=== PATIENT | male | born 1950 | race Caucasian/White ===

== ENCOUNTER 2016-11-22 13:41 | Inpatient (IN) ==
[2016-11-22] MEDS ORDERED: LORazepam 2 MG/ML VIAL IV ONE ×2 (14:19→16:54)
[2016-11-22] MEDS ORDERED: POTASSIUM CHLORIDE 20 MEQ, MAGNESIUM SULFATE 16.24 MEQ, MVI, ADULT NO.4 WITH VIT K 10 M... IV SCH (14:30)
[2016-11-22] MEDS: THIAMINE 100 MG/ML VIAL IM ONE ×2 (14:51→15:22)
[2016-11-22] MEDS ORDERED: POTASSIUM CHLORIDE 20 MEQ, MAGNESIUM SULFATE 16.24 MEQ, THIAMINE 100 MG, MVI, ADULT NO.... IV SCH (15:30)
[2016-11-22 16:08] LABS: Lipase 273 U/L (7-60); Magnesium 1.6 mg/dL (1.6-2.5)
[2016-11-22 16:12] LABS: ALT/SGPT 31 U/l (0-40); Albumin 4.1 gm/dL (3.2-5.2); Albumin/Globulin Ratio 1.9 (1.0-2.3); Alkaline Phosphatase 28 U/L (39-117); Blood Urea Nitrogen 18 mg/dl (8-23)
[2016-11-22 16:26] LABS: Vitamin B12 458.1 pg/ml (243-894)
[2016-11-22 16:34] LABS: Basophils # (Auto) 0 K/mcL (0.0-0.3); Basophils % (Auto) 0 % (0.0-2.0); Eosinophils # (Auto) 0 K/mcL (0.0-0.7); Eosinophils % (Auto) 1.3 % (0.0-7.0); Lymphocytes # (Auto) 0.5 K/mcL (1.5-4.8); Lymphocytes % (Auto) 13.4 % (15.5-49.0); Mean Cell Volume 81.6 fL (80.0-100.0); Mean Corpuscular HGB Conc 31.7 g/dL (31.0-36.0); Mean Corpuscular Hemoglobin 25.8 pg (26.0-34.0); Monocytes # (Auto) 0.6 K/mcL (0.1-0.9); Monocytes % (Auto) 15.3 % (1.0-9.0); Platelet Count 209 K/mcL (140-440); Red Cell Distribution Width 24.1 % (11.5-14.5)
--- NOTE | 2016-11-22 16:46 | Internal Med History&Physical ---
Medical - H&P: HPI Patient information: Note initiated : 11/22/16 at 4:42 pm Service Date, if different from initiated Date: [] Patient: Carl Perez 66 y/o M admitted on for withdrawals. Chief Complaint: [] History of present illness: Mr. Perez is a 66 year old male with a history of chronic alcohol abuse, with many long-term complications including gastritis and esophageal varices with GI bleeding. he says he did quit drinking completely for about one year about 3 years ago, but then gradually resumed it. 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 In September and October several friends , and he has been helping with there is states, and has been a bit overwhelmed. He says he is now drinking up to 3 or 4 bottles of wine per day. Says he has lost his appetite. He is having increased balance and dizziness problems. He decided to quitcold turkey again 2 days ago, and did get a prescription to useperiodically. However today, he says he just suddenly felt extremely frightened and he freaked out and felt like he was falling down, and started screaming. He thinks he has been hallucinating voices. He has been feeling chilled and also has a headache, and says hisears seem to be hearing sounds differently. He has had some vomiting, mainly after coughing and gagging. He's also had some nausea. He's had some mild epigastric discomfort as well. He does note that his stools have been black, but says he has been taking Pepto-Bismol. He presented here this evening, saying he just couldn't handle all of the symptoms he was having at home, and is therefore admitted for monitored alcohol withdrawal symptoms. Otherwise, he denies fever, new vision changes sore throat or cough, chest pain or palpitations, shortness of breath or wheezing. He denies hematemesis or rectal bleeding, or dysuria. Medical History Hypertension (Chronic) Erosive gastritis (Chronic) Dr. Tapia Essential hypertension (Chronic) add losartan to the metoprolol and continue the home monitoring to goal of 140/ 85 Peptic ulcer (Chronic) 12/09/2014 - Dr. Abarca Skin lesion (Chronic) 12/09/2014 - Dr. Abarca. Multiple skin lesions for which he has sought a rubber tire curer in the past Hyperlipidemia (Chronic) 12/09/2014 - Dr. Abarca Hernia, hiatal (Chronic) 12/09/2014 - Dr. Tapia Gastrointestinal bleed (Chronic) 12/09/2014 - Dr. Abarca: Upper GI bleed Gastritis, alcoholic (Chronic) 12/09/2014 - Dr. Abarca Esophageal varices (Chronic) 12/09/2014 - Dr. Abarca CAD (coronary artery disease) (Chronic) 12/09/2014 - Dr. Abarca Bipolar disorder (Chronic) 12/09/2014 - Dr. Abarca Anxiety disorder (Chronic) 12/09/2014 - Dr. Abarca Anemia due to blood loss (Chronic) 12/09/2014 - Dr. Abarca Alcohol dependence, continuous (Chronic) 12/09/2014 - Dr. Abarca Surgical History History of colonoscopy (Chronic 09/14/15) Ned Tapia MD History of intravascular stent placement (Chronic) History of esophagogastroduodenoscopy (Chronic 08/12/15) Dr. Tapia Medication List aspirin 325 mg tablet 325 mg PO QDAY chlorhexidine gluconate 0.12 % mouthwash PO 30 days ezetimibe-simvastatin 10 mg-simvastatin 40 mg tablet 1 tab PO QDAY [Iron] 520 mg tablet 1 tab PO BID lorazepam 1 mg tablet 1 mg PO TID PRN losartan 100 mg tablet 100 mg PO QDAY metoprolol succinate ER 100 mg tablet,extended release 24 hr 100 mg PO QDAY omeprazole 20 mg capsule,delayed release 20 mg PO QDAY tadalafil 5 mg tablet 5 mg PO QDAY Allergies/Adverse Reactions No Known Drug Intolerances family history: mother with lung cancer. Father with prostate cancer. He has one sister who is alive and well. Social History smoking status: Former smoke, he quit in 1991. He has not used drugs since college. He drinks up to 2-3 bottles of wine per day. He is retired. he lives with his .he notes she also drinks alcohol regularly, but she has not had the problems he has had. Medical - H&P: Meds Home Medications Medication Instructions Recorded Confirmed Type Iron 1 tab PO BID 05/29/15 11/20/16 History aspirin 325 mg tablet 325 mg PO QDAY 11/02/15 11/20/16 History chlorhexidine gluconate 0.12 % 30 ml PO DAILY 30 Days 11/02/15 11/22/16 History mouthwash Losartan [Cozaar] 150 mg PO QDAY PRN 11/22/16 11/22/16 History Omeprazole [Prilosec] 20 mg PO HS 11/22/16 11/22/16 History Allergies Allergy/AdvReac Type Severity Reaction Status Date / Time No Known Drug Allergies Allergy Unverified 11/20/16 16:14 Medical - H&P: Exam - Constitutional Vitals: Temp Pulse Resp BP Pulse Ox 98.1 F 54 L 18 166/79 96 11/22/16 13:45 11/22/16 16:20 11/22/16 16:20 11/22/16 16:20 11/22/16 16:20 Exam: On exam, he is an anxious, tearful man, who denies pain.ext line head: Normocephalic, atraumatic. Eyes: PERRLA, EOMI, anicteric. The conjunctiva on the left are mildly injected. Ears: He has bilateral moderate cerumen, obscuring the TMs. Pharynx:Mucosa somewhat dry, teeth are in fair condition. Neck: Is supple, without lymphadenopathy, JVD, thyromegaly. Cardiac exam: Shows normal S1 and S2, without murmurs, rubs, gallops. Lungs are clear to auscultation, without rales, rhonchi, wheezes. Abdomen: Is soft and nontender, without obvious masses. Bowel sounds are normoactive. Extremities: Show no significant edema, cyanosis, clubbing. Neurologic exam: The patient is awake and alert, but anxious and tearful. He is oriented 3. On cerebellar exam he is quite tremulous, but does not appear to show asterixis. Motor exam is otherwise grossly nonfocal. Medical - H&P: Reslt - Labs CBC & Chem 7: 11/22/16 14:30 11/22/16 14:30 Labs: Short CBC 11/22/16 Range/Units 14:30 WBC 3.8 L (4.5-11.0) K/mcL Hgb 11.4 L (13.5-16.5) g/dL Hct 35.9 L (41.0-55.0) % Plt Count 209 (140-440) K/mcL BMP 11/22/16 14:30 Sodium 138 Potassium 3.6 Chloride 101 Carbon Dioxide 20 L BUN 18 Creatinine 0.9 Glucose 105 Calcium 9.0 Liver Function 11/22/16 Range/Units 14:30 Total Bilirubin 1.1 H (0.0-1.0) mg/dL AST 62 H (0-37) U/l ALT 31 (0-40) U/l Alkaline Phosphatase 28 L (39-117) U/L Albumin 4.1 (3.2-5.2) gm/dL alcohol level is less than 0.01 Medical - H&P: A/P (1) Alcohol withdrawal delirium Current visit: Yes Status: Acute (2) Anxiety Current visit: No Status: Acute (3) Alcohol dependence, continuous Problem details: 12/09/2014 - Dr. Abarca Current visit: No Status: Chronic (4) Bipolar disorder Problem details: 12/09/2014 - Dr. Abarca Current visit: No Status: Chronic (5) CAD (coronary artery disease) Problem details: 12/09/2014 - Dr. Abarca Current visit: No Status: Chronic #1. Acute alcohol withdrawal. The patient has apparently been trying to wean himself from alcohol at home, but has overused he lorazepam in the past. He now presents not doing well and there is concern for full-blown DTs. -admitted to telemetry with close monitoring. Alcohol withdrawal protocol using lorazepam and clonidine. #2. CODE STATUS:ull code. The patient believes he has a living will and that his has his POA. #3. DVT prophylaxis: We will use SCDs, given that he takes aspirin at home, and has previous history of GI bleeding and esophageal varices. #4. History of coronary disease. Continue usual cardiac meds. his beta blockers are likely blunting his heart rate response #5. Psychiatric. - history of both bipolar disorder and anxiety. I discussed with him that he's clearly showing some signs of depression, and should consider undergoing treatment with either medications or counseling for at least a few months. #6. GI. -continue proton pump inhibitor. #7. Elevated lipase. He has no significant abdominal pain, so I doubt significant pancreatitis. this visit took proximally 60 minutes, to review the patient's records, review his case with the ER M.D., interview and examine him, and write orders.
--- NOTE | 2016-11-22 16:58 | Emergency Department Note ---
Alcohol HPI - General Chief Complaint: Alcohol Stated Complaint: withdrawals Time Seen by Provider: 11/22/16 14:18 Source: patient, family, EMS Mode of arrival: EMS Limitations: no limitations - History of Present Illness HPI Narrative: 66-year-old male with known history of alcohol abuse came in 2 days ago and received some Ativan to help him with withdrawal. He is now stop for 48 hours without alcohol , drinking plenty of water. However he is having increasing nausea vomiting and tremor hyperventilation. He does want to completely stop drinking and has in the past but is requiring Ativan. 1 mg of Ativan however is no longer holding him more than 3 or 4 hours. He is diaphoretic and panicky. Normal stools and urine- stool sometimes black though from Pepto- Bismol - Related Data Home Medications Medication Instructions Recorded Confirmed Iron 1 tab PO BID 05/29/15 11/20/16 aspirin 325 mg tablet 325 mg PO QDAY 11/02/15 11/20/16 chlorhexidine gluconate 0.12 % 30 ml PO DAILY 30 Days 11/02/15 11/22/16 mouthwash Losartan [Cozaar] 150 mg PO QDAY PRN 11/22/16 11/22/16 Omeprazole [Prilosec] 20 mg PO HS 11/22/16 11/22/16 Previous Rx's Medication Instructions Recorded ezetimibe 10 mg-simvastatin 40 mg 1 tab PO QDAY #30 tab 01/12/16 tablet metoprolol succinate ER 100 mg 100 mg PO QDAY #30 tab 07/26/16 tablet,extended release 24 hr lorazepam 1 mg tablet 1 mg PO TID PRN #90 tab 10/18/16 Allergies Allergy/AdvReac Type Severity Reaction Status Date / Time No Known Drug Allergies Allergy Unverified 11/20/16 16:14 Review of Systems All systems ED: reviewed and negative except as stated. Past Medical History - Past Medical History Attestation: Yes: The following information was validated with the patient. Medical history: Reports: coronary artery disease, GERD, hyperlipidemia, hypertension Surgical history ED: Reports: angioplasty/stent Psychiatric history: Reports: anxiety, bipolar - Social History smoking status: Former smoker Alcohol use: Reports: Heavy Physical Exam Some acute distress from alcohol withdrawal. Diaphoretic hyperventilating and tremulous. Normocephalic atraumatic. Conjunctiva somewhat injected bilaterally. No nasal discharge or congestion. Oropharynx is pink and moist. Posterior pharynx is clear. Neck is supple without lymphadenopathy or thyromegaly. Heart is tachycardic. Lungs are clear to auscultation bilaterally without wheezes rales rhonchi or respiratory distress. Palpating abdomen reproduces nausea. No pedal edema. +2 radial pulse. Alert and oriented he will answer questions appropriately. Very anxious - General Limitations: no limitations Course Vital Signs Temperature 98.1 F 11/22/16 13:45 Pulse Rate 63 11/22/16 13:45 Respiratory Rate 18 11/22/16 13:45 Blood Pressure 187/86 11/22/16 13:45 Pulse Oximetry (%) 98 11/22/16 13:45 Temperature 99.3 F 11/23/16 04:00 Pulse Rate 88 11/22/16 23:00 Respiratory Rate 16 11/23/16 04:00 Blood Pressure 154/85 11/23/16 04:00 Pulse Oximetry (%) 94 11/23/16 07:35 Alcohol - Lab Data Lab results reviewed: Yes I reviewed the patient's lab results. Result diagrams: 11/23/16 04:20 11/23/16 04:20 Lab Results 11/22/16 11/22/16 11/22/16 Range/Units 14:30 14:30 14:30 WBC 3.8 L (4.5-11.0) K/mcL RBC 4.40 L (4.50-5.90) M/mcL Hgb 11.4 L (13.5-16.5) g/dL Hct 35.9 L (41.0-55.0) % POC Hct 36.0 L (41.0-55.0) % MCV 81.6 (80.0-100.0) fL MCH 25.8 L (26.0-34.0) pg MCHC 31.7 (31.0-36.0) g/dL RDW 24.1 H (11.5-14.5) % Plt Count 209 (140-440) K/mcL MPV 8.9 (7.4-10.4) fL Gran % 70.0 (38.0-78.0) % Lymph % (Auto) 13.4 L (15.5-49.0) % Platte % (Auto) 15.3 H (1.0-9.0) % Eos % (Auto) 1.3 (0.0-7.0) % Baso % (Auto) 0 (0.0-2.0) % Gran # 2.7 (1.8-8.0) K/mcL Lymph # 0.5 L (1.5-4.8) K/mcL Platte # 0.6 (0.1-0.9) K/mcL Eos # 0 (0.0-0.7) K/mcL Baso # 0 (0.0-0.3) K/mcL POC Sodium 139 (133-145) mmol/L Sodium (133-145) mmol/L POC Potassium 3.3 (3.3-5.1) mmol/L Potassium (3.3-5.1) mmol/L POC Chloride 104 (96-108) mmol/L Chloride (96-108) mmol/L Carbon Dioxide (22-30) mmol/L POC Total CO2 20 L (22-30) mmol/L Anion Gap (8-16) POC BUN 17 (8-23) mg/dl BUN (8-23) mg/dl Creatinine (0.7-1.2) mg/dl POC Creatinine 0.7 (0.7-1.2) mg/dl GFR Calculation Glucose (70-105) mg/dL POC Glucose 109 H (70-105) mg/dL Hemoglobin A1c (4.0-6.0) % HGB Estim Average Glucose mg/dL Calcium (8.6-10.4) mg/dl POC WB Ioniz Calcium 1.10 L (1.16-1.32) mmol/L Magnesium 1.6 (1.6-2.5) mg/dL Total Bilirubin (0.0-1.0) mg/dL AST (0-37) U/l ALT (0-40) U/l Alkaline Phosphatase (39-117) U/L Total Protein (5.9-8.4) gm/dL Albumin (3.2-5.2) gm/dL Globulin (2.2-3.7) gm/dL Albumin/Globulin Ratio (1.0-2.3) Lipase 273 H (7-60) U/L Vitamin B12 (243-894) pg/ml Ethyl Alcohol < 0.010 (<0.010) gm/dl 11/22/16 11/22/16 11/22/16 Range/Units 14:30 14:30 14:30 WBC (4.5-11.0) K/mcL RBC (4.50-5.90) M/mcL Hgb (13.5-16.5) g/dL Hct (41.0-55.0) % POC Hct (41.0-55.0) % MCV (80.0-100.0) fL MCH (26.0-34.0) pg MCHC (31.0-36.0) g/dL RDW (11.5-14.5) % Plt Count (140-440) K/mcL MPV (7.4-10.4) fL Gran % (38.0-78.0) % Lymph % (Auto) (15.5-49.0) % Platte % (Auto) (1.0-9.0) % Eos % (Auto) (0.0-7.0) % Baso % (Auto) (0.0-2.0) % Gran # (1.8-8.0) K/mcL Lymph # (1.5-4.8) K/mcL Platte # (0.1-0.9) K/mcL Eos # (0.0-0.7) K/mcL Baso # (0.0-0.3) K/mcL POC Sodium (133-145) mmol/L Sodium 138 (133-145) mmol/L POC Potassium (3.3-5.1) mmol/L Potassium 3.6 (3.3-5.1) mmol/L POC Chloride (96-108) mmol/L Chloride 101 (96-108) mmol/L Carbon Dioxide 20 L (22-30) mmol/L POC Total CO2 (22-30) mmol/L Anion Gap 17.0 H (8-16) POC BUN (8-23) mg/dl BUN 18 (8-23) mg/dl Creatinine 0.9 (0.7-1.2) mg/dl POC Creatinine (0.7-1.2) mg/dl GFR Calculation 89 Glucose 105 (70-105) mg/dL POC Glucose (70-105) mg/dL Hemoglobin A1c 5.9 (4.0-6.0) % HGB Estim Average Glucose 123 mg/dL Calcium 9.0 (8.6-10.4) mg/dl POC WB Ioniz Calcium (1.16-1.32) mmol/L Magnesium (1.6-2.5) mg/dL Total Bilirubin 1.1 H (0.0-1.0) mg/dL AST 62 H (0-37) U/l ALT 31 (0-40) U/l Alkaline Phosphatase 28 L (39-117) U/L Total Protein 6.3 (5.9-8.4) gm/dL Albumin 4.1 (3.2-5.2) gm/dL Globulin 2.2 (2.2-3.7) gm/dL Albumin/Globulin Ratio 1.9 (1.0-2.3) Lipase (7-60) U/L Vitamin B12 458.1 (243-894) pg/ml Ethyl Alcohol (<0.010) gm/dl urine shows specific gravity 1.015 otherwise normal Disposition Clinical Impression: Alcohol withdrawal syndrome Summary: Acute alcohol withdrawal in DTs. Started IV fluids with banana bag and given 2 mg Ativan- a total of 4 mg here to control symptoms tolerable levels. Discussed with the patient that he does indeed want to quit drinking and continue detox. Advised him that he should be admitted as he still has at least 1 more day of DTs and will need IV hydration, antiemetics and monitoring. Discussed with Dr. Sy the hospitalist who agreed to admit for alcohol withdrawal Disposition: Xfer As Inpt ([facility] [place]) Condition: Fair
[2016-11-22] MEDS ORDERED: 0.9 % SODIUM CHLORIDE 1,000 ML IV ONE (17:38)
[2016-11-22] MEDS ORDERED: ONDANSETRON 4 MG/2 ML VIAL IV PRN (17:55)
[2016-11-22] MEDS ORDERED: cloNIDine HCL 0.1 MG TABLET PO PRN (17:55)
[2016-11-22] MEDS ORDERED: LORazepam 2 MG/ML VIAL IV PRN (19:15)
[2016-11-22 19:51] LABS: Hemoglobin A1C 5.9 % HGB (4.0-6.0)
[2016-11-22] MEDS ORDERED: LORazepam 2 MG/ML VIAL ONE ×2 (19:53→23:49)
[2016-11-22] MEDS ORDERED: LOSARTAN 50 MG TABLET PO PRN (20:21)
[2016-11-22] MEDS: LORazepam 2 MG/ML VIAL IV PRN ×2 (22:45→23:00)
[2016-11-22] MEDS: 0.9 % SODIUM CHLORIDE 10 ML SYRINGE IV SCH ×2 (23:25)
[2016-11-23] MEDS ORDERED: LORazepam 2 MG/ML VIAL ONE ×2 (02:21→04:19)
[2016-11-23] MEDS: ACETAMINOPHEN 325 MG TABLET PO PRN (03:30)
[2016-11-23] MEDS: 0.9 % SODIUM CHLORIDE 10 ML SYRINGE IV SCH ×5 (04:34→21:03)
[2016-11-23 05:54] LABS: ALT/SGPT 26 U/l (0-40); Albumin 3.8 gm/dL (3.2-5.2); Albumin/Globulin Ratio 1.5 (1.0-2.3); Alkaline Phosphatase 25 U/L (39-117); Bilirubin,Direct 0.3 mg/dL (0.0-0.3); Blood Urea Nitrogen 13 mg/dl (8-23); Gamma Glutamyl Transpeptidase 503 U/L (8-61); Magnesium 2.2 mg/dL (1.6-2.5); Phosphorous 3.6 mg/dL (2.7-4.5); Uric Acid 4.3 mg/dL (2.5-8.0)
[2016-11-23] MEDS: PANTOPRAZOLE 40 MG TABLET PO SCH (07:31)
[2016-11-23] MEDS ORDERED: POTASSIUM CHLORIDE 40 MEQ in DEXTROSE 5% IN WATER 500 ML IV ONE (07:36)
[2016-11-23 08:21] LABS: Basophils # (Auto) 0 K/mcL (0.0-0.3); Basophils % (Auto) 0 % (0.0-2.0); Eosinophils # (Auto) 0 K/mcL (0.0-0.7); Eosinophils % (Auto) 0.7 % (0.0-7.0); Granulocytes % (Auto) 61.1 % (38.0-78.0); Lymphocytes # (Auto) 0.8 K/mcL (1.5-4.8); Lymphocytes % (Auto) 24.8 % (15.5-49.0); Mean Cell Volume 81.3 fL (80.0-100.0); Mean Corpuscular HGB Conc 32.5 g/dL (31.0-36.0); Mean Corpuscular Hemoglobin 26.4 pg (26.0-34.0); Monocytes # (Auto) 0.5 K/mcL (0.1-0.9); Monocytes % (Auto) 13.4 % (1.0-9.0); Platelet Count 195 K/mcL (140-440); Red Cell Distribution Width 23.4 % (11.5-14.5)
[2016-11-23] MEDS ORDERED: METOPROLOL SUCCINATE 50 MG TAB.XL.24H PO SCH (09:00)
[2016-11-23] MEDS: THIAMINE 100 MG TABLET PO SCH (10:18)
[2016-11-23] MEDS: MULTIVIT,THER IRON,CA,FA & MIN 1 TABLET PO SCH (10:18)
[2016-11-23] MEDS: FOLIC ACID 1 MG TABLET PO SCH (10:18)
[2016-11-23] MEDS: CHLORHEXIDINE GLUCONATE 1 ML ORAL.SOL SSP SCH (10:21)
[2016-11-23] MEDS: LORazepam 2 MG/ML VIAL IV PRN ×3 (10:22→21:04)
--- NOTE | 2016-11-23 12:05 | Internal Med Progress Note ---
Medical - PN: Subj Patient information: Note initiated : 11/23/16 at 12:05 pm Service Date, if different from initiated Date: [] Patient: Carl Perez 66 y/o M admitted on 11/22/16 for withdrawals. Chief Complaint: [] Interval history: November 22, 2016:History of present illness: Mr. Perez is a 66 year old male with a history of chronic alcohol abuse, with many long-term complications including gastritis and esophageal varices with GI bleeding. he says he did quit drinking completely for about one year about 3 years ago, but then gradually resumed it. 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 In September and October several friends , and he has been helping with there is states, and has been a bit overwhelmed. He says he is now drinking up to 3 or 4 bottles of wine per day. Says he has lost his appetite. He is having increased balance and dizziness problems. He decided to quitcold turkey again 2 days ago, and did get a prescription to useperiodically. However today, he says he just suddenly felt extremely frightened and he freaked out and felt like he was falling down, and started screaming. He thinks he has been hallucinating voices. He has been feeling chilled and also has a headache, and says hisears seem to be hearing sounds differently. He has had some vomiting, mainly after coughing and gagging. He's also had some nausea. He's had some mild epigastric discomfort as well. He does note that his stools have been black, but says he has been taking Pepto-Bismol. He presented here this evening, saying he just couldn't handle all of the symptoms he was having at home, and is therefore admitted for monitored alcohol withdrawal symptoms. Otherwise, he denies fever, new vision changes sore throat or cough, chest pain or palpitations, shortness of breath or wheezing. He denies hematemesis or rectal bleeding, or dysuria. November 23, 2016: the patient has had widely varying CIWA scores overnight. He continues to have intermittent agitation, confusion, hallucinations but at other times is calm and cooperative and fairly alert. He does not seem to recognize me when I first entered the room today, and then asked me if he met me several days ago. he did manage to climb out of bed at least once last night. otherwise, he says he has some mild low back pain, which is chronic. He denies fever or chills, chest pain or palpitations, shortness of breath or cough, abdominal pain, nausea or vomiting, dysuria. - Constitutional Vitals: Vital Signs Temp Pulse Resp BP Pulse Ox 98.4 F 59 L 16 172/95 97 11/23/16 08:00 11/23/16 08:00 11/23/16 08:00 11/23/16 08:00 11/23/16 08:00 Period Temp Pulse Resp BP Sys/Jacobs Pulse Ox Last 24 Hr 98.4 F-100.5 F 53-88 16-24 135-187/74-98 92-100 Intake and Output 11/22/16 11/23/16 11/23/16 21:59 05:59 13:59 Intake Total 600 / 2425 390 / 390 Output Total 250 / 250 750 / 750 250 / 250 Balance 350 / 2175 -360 / -360 -250 / -250 Weight 191 lb 12.8 oz Intake & Output: Intake & Output 11/22/16 11/23/16 11/23/16 21:59 05:59 13:59 Intake Total 600 / 2425 390 / 390 Output Total 250 / 250 750 / 750 250 / 250 Balance 350 / 2175 -360 / -360 -250 / -250 Weight 191 lb 12.8 oz Intake: Oral 600 / 600 390 / 390 Output: Void Amount 250 / 250 750 / 750 250 / 250 Other: Meal snake 100% Breakfast Percent of Meal Consumed 100% Exam: On exam,he is fairly calm morning, but forgetful. neck is supple without obvious lymphadenopathy or JVD. Cardiac exam shows regular rate and rhythm. Lungs are clear to auscultation. Abdomen is soft and nontender.Extremities show no edema. Neurologic exam:The patient is calm and alert, but forgetful. He is much less tremulous today than yesterday. Otherwise exam is grossly nonfocal. Medical - PN: Obj Da - Labs CBC & Chem 7: 11/23/16 04:20 11/23/16 04:20 Labs: Abnormal Lab Results 11/23/16 11/23/16 04:20 04:20 WBC 3.4 L RBC 4.10 L Hgb 10.8 L Hct 33.3 L RDW 23.4 H Lyman % (Auto) 13.4 H Lymph # 0.8 L Potassium 3.2 L GGT 503 H AST 47 H Alkaline Phosphatase 25 L MRSA nasal screen is negative. Meds: Medications Acetaminophen (Tylenol) 650 mg PO Q6HP PRN PRN Reason: PAIN/FEVER > 101 Last Admin: 11/23/16 03:30 Dose: 650 mg Chlorhexidine Gluconate (Peridex) 30 ml SSP DAILY [facility] Last Admin: 11/23/16 10:21 Dose: 30 ml Clonidine HCl (Catapres) 0.1 mg PO Q4HP PRN PRN Reason: Alcohol Withdrawal Last Admin: 11/23/16 10:17 Dose: 0.1 mg Docusate Sodium (Colace) 100 mg PO BID PRN PRN Reason: Constipation Ezetimibe (Zetia) 10 mg PO HS [facility] Folic Acid (Folic Acid) 1 mg PO DAILY [facility] Last Admin: 11/23/16 10:18 Dose: 1 mg Iron Carb/Multivit/[place]/Folic Acid (Multivitamin W/Minerals) 1 tab PO DAILY [facility] Last Admin: 11/23/16 10:18 Dose: 1 tab Lorazepam (Ativan) 0 mg IV Q4HP PRN; Protocol PRN Reason: Alcohol Withdrawal Last Admin: 11/23/16 10:22 Dose: 2 mg Losartan Potassium (Cozaar) 100 mg PO QDAY [facility] Metoprolol Succinate (Toprol Xl) 50 mg PO BID [facility] Ondansetron HCl (Zofran) 4 mg IV Q4HP PRN PRN Reason: Nausea And Vomiting Last Admin: 11/22/16 22:55 Dose: 4 mg Pantoprazole Sodium (Protonix) 40 mg PO QAMAC [facility] Last Admin: 11/23/16 07:31 Dose: 40 mg Simvastatin (Zocor) 40 mg PO [facility] Sodium Chloride (Saline Flush) 10 ml IV Q8 [facility] Last Admin: 11/23/16 04:34 Dose: 10 ml Sodium Chloride (Saline Flush) 10 ml IV Q8 [facility] Last Admin: 11/23/16 04:34 Dose: Not Given Thiamine HCl (Vitamin B1) 100 mg PO QDAY [facility] Last Admin: 11/23/16 10:18 Dose: 100 mg Medical - PN: A/P - Time Spent With Patient Total time spent is greater than 50% in coordination of care (as documented) at patient's floor/unit and/or counseling patient: (1) Alcohol withdrawal delirium Status: Acute Current Visit: Yes (2) Anxiety Status: Acute Current Visit: No (3) Alcohol dependence, continuous Problem details: 12/09/2014 - Dr. Abarca Status: Chronic Current Visit: No (4) Bipolar disorder Problem details: 12/09/2014 - Dr. Abarca Status: Chronic Current Visit: No (5) CAD (coronary artery disease) Problem details: 12/09/2014 - Dr. Abarca Status: Chronic Current Visit: No - Narrative A/P Narrative: #1. Acute alcohol withdrawal. The patient has apparently been trying to wean himself from alcohol at home, but has overused he lorazepam in the past. He now presents not doing well and there is concern for full-blown DTs. -admitted to telemetry with close monitoring. Alcohol withdrawal protocol using lorazepam and clonidine. the patient continues to have bouts of confusion, agitation, elevated blood pressure. He will need at least another dayof close monitoring and treatment with lorazepam and clonidine. -continue multivitamin, thiamine, folate. #2. CODE STATUS:Full code. The patient believes he has a living will and that his has his POA. #3. DVT prophylaxis: We will use SCDs, given that he takes aspirin at home, and has previous history of GI bleeding and esophageal varices. #4. History of coronary disease. Continue usual cardiac meds. -heart rates have been slow this morning, possibly due to clonidine. I will split his dose of metoprolol to twice a day in case he becomes more tachycardic. Elevated blood pressures are likely due to withdrawal, and are being addressed with his usual meds plus clonidine. #5. Psychiatric. - history of both bipolar disorder and anxiety. I discussed with him that he's clearly showing some signs of depression, and should consider undergoing treatment with either medications or counseling for at least a few months. #6. GI. -continue proton pump inhibitor. #7. Elevated lipase. He has no significant abdominal pain, so I doubt significant pancreatitis. #8. Hypokalemia. Replaced IV. So far today, this visit has taken [id number] minutes, to review patient's test results, interview and examine him, reviewing his case with nursing staff, and write orders. Medical - PN: Qual - Stroke Symptom Onset Unknown: No - VTE Deep Vein Thrombosis/Pulmonary Embolism Present on Admission: No
[2016-11-23] MEDS: METOPROLOL SUCCINATE 50 MG TAB.XL.24H PO SCH (21:02)
[2016-11-23] MEDS: SIMVASTATIN 40 MG TABLET PO SCH (21:03)
[2016-11-23] MEDS: EZETIMIBE 10 MG TABLET PO SCH (21:03)
[2016-11-24] MEDS: 0.9 % SODIUM CHLORIDE 10 ML SYRINGE IV SCH ×7 (00:13→21:18)
[2016-11-24] MEDS: LORazepam 2 MG/ML VIAL IV PRN ×11 (00:28→21:15)
[2016-11-24] MEDS: ACETAMINOPHEN 325 MG TABLET PO PRN ×2 (03:32→07:37)
[2016-11-24 06:27] LABS: ALT/SGPT 21 U/l (0-40); Albumin 3.5 gm/dL (3.2-5.2); Albumin/Globulin Ratio 1.5 (1.0-2.3); Alkaline Phosphatase 23 U/L (39-117); Bilirubin,Direct 0.2 mg/dL (0.0-0.3); Blood Urea Nitrogen 13 mg/dl (8-23); Gamma Glutamyl Transpeptidase 456 U/L (8-61); Phosphorous 4.8 mg/dL (2.7-4.5); Uric Acid 4.8 mg/dL (2.5-8.0)
[2016-11-24] MEDS: METOPROLOL SUCCINATE 50 MG TAB.XL.24H PO SCH ×3 (07:23→21:14)
[2016-11-24] MEDS: CHLORHEXIDINE GLUCONATE 1 ML ORAL.SOL SSP SCH (07:36)
[2016-11-24] MEDS: PANTOPRAZOLE 40 MG TABLET PO SCH (07:37)
[2016-11-24] MEDS: DOCUSATE SODIUM 100 MG CAPSULE PO PRN (07:37)
[2016-11-24] MEDS: LOSARTAN 50 MG TABLET PO SCH (07:37)
[2016-11-24] MEDS: FOLIC ACID 1 MG TABLET PO SCH (07:37)
[2016-11-24] MEDS: MULTIVIT,THER IRON,CA,FA & MIN 1 TABLET PO SCH (07:37)
[2016-11-24] MEDS: THIAMINE 100 MG TABLET PO SCH (09:08)
--- NOTE | 2016-11-24 13:17 | Internal Med Progress Note ---
Medical - PN: Subj Patient information: Note initiated : 11/24/16 at 1:17 pm Service Date, if different from initiated Date: [] Patient: Carl Perez 66 y/o M admitted on 11/22/16 for withdrawals. Chief Complaint: [] Interval history: November 22, 2016:History of present illness: Mr. Perez is a 66 year old male with a history of chronic alcohol abuse, with many long-term complications including gastritis and esophageal varices with GI bleeding. he says he did quit drinking completely for about one year about 3 years ago, but then gradually resumed it. 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 In September and October several friends , and he has been helping with there is states, and has been a bit overwhelmed. He says he is now drinking up to 3 or 4 bottles of wine per day. Says he has lost his appetite. He is having increased balance and dizziness problems. He decided to quitcold turkey again 2 days ago, and did get a prescription to useperiodically. However today, he says he just suddenly felt extremely frightened and he freaked out and felt like he was falling down, and started screaming. He thinks he has been hallucinating voices. He has been feeling chilled and also has a headache, and says hisears seem to be hearing sounds differently. He has had some vomiting, mainly after coughing and gagging. He's also had some nausea. He's had some mild epigastric discomfort as well. He does note that his stools have been black, but says he has been taking Pepto-Bismol. He presented here this evening, saying he just couldn't handle all of the symptoms he was having at home, and is therefore admitted for monitored alcohol withdrawal symptoms. Otherwise, he denies fever, new vision changes sore throat or cough, chest pain or palpitations, shortness of breath or wheezing. He denies hematemesis or rectal bleeding, or dysuria. November 23, 2016: the patient has had widely varying CIWA scores overnight. He continues to have intermittent agitation, confusion, hallucinations but at other times is calm and cooperative and fairly alert. He does not seem to recognize me when I first entered the room today, and then asked me if he met me several days ago. he did manage to climb out of bed at least once last night. otherwise, he says he has some mild low back pain, which is chronic. He denies fever or chills, chest pain or palpitations, shortness of breath or cough, abdominal pain, nausea or vomiting, dysuria. November 24, 2016: Today, the patient seems to be having less hallucinations, but he still has episodes of being very anxious and tremulous. The nurses say heis asking for the lorazepam every 2-4 hours, whether or not he needs criteria. He seems a bit frightened about the prospect of going home anytime soon. He still seems to be a little on the fence about going to inpatient rehabilitation for his alcoholism. he admits that he feels quite depressed andhe needs to seek treatment for that. he otherwise denies fever or chills, chest pain or palpitations, shortness of breath, nausea vomiting or abdominal pain, dysuria, current hallucinations. - Constitutional Vitals: Vital Signs Temp Pulse Resp BP Pulse Ox 98.0 F 54 L 19 156/75 95 11/24/16 12:00 11/24/16 12:00 11/24/16 12:00 11/24/16 12:00 11/24/16 12:00 Period Temp Pulse Resp BP Sys/Jacobs Pulse Ox Last 24 Hr 97.3 F-98.9 F 46-57 12-19 136-178/75-109 76-100 Intake and Output 11/23/16 11/24/16 11/24/16 21:59 05:59 13:59 Intake Total 200 / 200 760 / 760 Output Total 726 / 726 500 / 500 500 / 500 Balance -526 / -526 -500 / -500 260 / 260 Weight 185 lb 4.8 oz Intake & Output: Intake & Output 11/23/16 11/24/16 11/24/16 21:59 05:59 13:59 Intake Total 200 / 200 760 / 760 Output Total 726 / 726 500 / 500 500 / 500 Balance -526 / -526 -500 / -500 260 / 260 Weight 185 lb 4.8 oz Intake: IV 520 / 520 Oral 200 / 200 240 / 240 Output: Void Amount 725 / 725 500 / 500 500 / 500 # of times incontinent of 1 / 1 urine Other: Meal snack Breakfast Percent of Meal Consumed 100% 100% Feeding Ability Assist with Tray Set Up Independent Exam: On exam,he is fairly calm but still speaks slowly and seems to lose track of his thoughts. neck is supple without obvious lymphadenopathy or JVD. Cardiac exam shows regular rate and rhythm. Lungs are clear to auscultation. Abdomen is soft and nontender.Extremities show no edema. Neurologic exam:The patient is calm and alert, but forgetful. he has a very fine tremor, which appears improved over yesterday. Otherwise exam is nonfocal. Medical - PN: Obj Da - Labs CBC & Chem 7: 11/23/16 04:20 11/24/16 04:40 Labs: Abnormal Lab Results 11/24/16 11/23/16 11/23/16 04:40 04:20 04:20 WBC 3.4 L RBC 4.10 L Hgb 10.8 L Hct 33.3 L RDW 23.4 H [place] % (Auto) 13.4 H Lymph # 0.8 L Potassium 3.2 L Phosphorus 4.8 H GGT 456 H 503 H AST 39 H 47 H Alkaline Phosphatase 23 L 25 L MRSA nasal screen is negative. Meds: Medications Acetaminophen (Tylenol) 650 mg PO Q6HP PRN PRN Reason: PAIN/FEVER > 101 Last Admin: 11/24/16 07:37 Dose: 650 mg Chlorhexidine Gluconate (Peridex) 30 ml SSP DAILY [facility] Last Admin: 11/24/16 07:36 Dose: 30 ml Clonidine HCl (Catapres) 0.1 mg PO Q4HP PRN PRN Reason: Alcohol Withdrawal Last Admin: 11/23/16 10:17 Dose: 0.1 mg Docusate Sodium (Colace) 100 mg PO BID PRN PRN Reason: Constipation Last Admin: 11/24/16 07:37 Dose: 100 mg Ezetimibe (Zetia) 10 mg PO HS [facility] Last Admin: 11/23/16 21:03 Dose: 10 mg Folic Acid (Folic Acid) 1 mg PO DAILY [facility] Last Admin: 11/24/16 07:37 Dose: 1 mg Iron Carb/Multivit/Noxapater/Folic Acid (Multivitamin W/Minerals) 1 tab PO DAILY [facility] Last Admin: 11/24/16 07:37 Dose: 1 tab Lorazepam (Ativan) 0 mg IV Q4HP PRN; Protocol PRN Reason: Alcohol Withdrawal Last Admin: 11/24/16 12:22 Dose: 2 mg Losartan Potassium (Cozaar) 100 mg PO QDAY [facility] Last Admin: 11/24/16 07:37 Dose: 100 mg Metoprolol Succinate (Toprol Xl) 50 mg PO BID [facility] Last Admin: 11/24/16 10:07 Dose: 50 mg Ondansetron HCl (Zofran) 4 mg IV Q4HP PRN PRN Reason: Nausea And Vomiting Last Admin: 11/22/16 22:55 Dose: 4 mg Pantoprazole Sodium (Protonix) 40 mg PO QAMAC [facility] Last Admin: 11/24/16 07:37 Dose: 40 mg Simvastatin (Zocor) 40 mg PO HS [facility] Last Admin: 11/23/16 21:03 Dose: 40 mg Sodium Chloride (Saline Flush) 10 ml IV Q8 [facility] Last Admin: 11/24/16 12:22 Dose: 10 ml Sodium Chloride (Saline Flush) 10 ml IV Q8 [facility] Last Admin: 11/24/16 12:22 Dose: 10 ml Thiamine HCl (Vitamin B1) 100 mg PO QDAY [facility] Last Admin: 11/24/16 09:08 Dose: 100 mg Medical - PN: A/P - Time Spent With Patient Total time spent is greater than 50% in coordination of care (as documented) at patient's floor/unit and/or counseling patient: (1) Alcohol withdrawal delirium Status: Acute Current Visit: Yes (2) Anxiety Status: Acute Current Visit: No (3) Alcohol dependence, continuous Problem details: 12/09/2014 - Dr. Abarca Status: Chronic Current Visit: No (4) Bipolar disorder Problem details: 12/09/2014 - Dr. Abarca Status: Chronic Current Visit: No (5) CAD (coronary artery disease) Problem details: 12/09/2014 - Dr. Abarca Status: Chronic Current Visit: No - Narrative A/P Narrative: #1. Acute alcohol withdrawal. The patient has apparently been trying to wean himself from alcohol at home, but has overused he lorazepam in the past. He now presents not doing well and there is concern for full-blown DTs. -admitted to telemetry with close monitoring. Alcohol withdrawal protocol using lorazepam and clonidine. -he patient's episodes of confusion and agitation and hallucinations are improving. Blood pressure is a little bit better controlled today. It appears he will need at least 1 more day of close monitoring and treatment for withdrawal symptoms. -he and his did meet with social work today, and her exploring alcohol rehabilitation options, although he does not seem to want to do inpatient. -continue multivitamin, thiamine, folate. #2. CODE STATUS:Full code. The patient believes he has a living will and that his has his POA. #3. DVT prophylaxis: We will use SCDs, given that he takes aspirin at home, and has previous history of GI bleeding and esophageal varices. #4. History of coronary disease. Continue usual cardiac meds. -he continues to have bradycardia, with heart rates in the 40s and 50s We are trying to continue with his metoprolol and losartan, regarding his hypertension. -Elevated blood pressures are likely due to withdrawal, and are being addressed with his usual meds plus clonidine. #5. Psychiatric. - history of both bipolar disorder and anxiety. I discussed with him that he's clearly showing some signs of depression, and should consider undergoing treatment with either medications or counseling for at least a few months. #6. GI. -continue proton pump inhibitor. #7. Elevated lipase. He has no significant abdominal pain, so I doubt significant pancreatitis. #8. Hypokalemia. Replaced IV. So far today, this visit has taken approximately 30 minutes, to review patient' s test results, interview and examine him, reviewing his case and plan of care, both with his and with nursing staff, and write orders. Medical - PN: Qual - Stroke Symptom Onset Unknown: No - VTE Deep Vein Thrombosis/Pulmonary Embolism Present on Admission: No
[2016-11-24] MEDS: SIMVASTATIN 40 MG TABLET PO SCH (21:14)
[2016-11-24] MEDS: EZETIMIBE 10 MG TABLET PO SCH (21:14)
[2016-11-25] MEDS: LORazepam 2 MG/ML VIAL IV PRN ×2 (00:10→05:55)
[2016-11-25] MEDS ORDERED: amLODIPine 5 MG TABLET PO ONE (04:31)
[2016-11-25] MEDS ORDERED: amLODIPine 5 MG TABLET ONE (04:44)
[2016-11-25] MEDS: 0.9 % SODIUM CHLORIDE 10 ML SYRINGE IV SCH ×4 (05:56→12:10)
[2016-11-25] MEDS: CHLORHEXIDINE GLUCONATE 1 ML ORAL.SOL SSP SCH (08:35)
[2016-11-25] MEDS: LOSARTAN 50 MG TABLET PO SCH (08:54)
[2016-11-25] MEDS: MULTIVIT,THER IRON,CA,FA & MIN 1 TABLET PO SCH (08:55)
[2016-11-25] MEDS: ACETAMINOPHEN 325 MG TABLET PO PRN (08:55)
[2016-11-25] MEDS: DOCUSATE SODIUM 100 MG CAPSULE PO PRN (08:55)
[2016-11-25] MEDS ORDERED: HYDROCHLOROTHIAZIDE 25 MG TABLET PO SCH (09:00)
[2016-11-25] MEDS: PANTOPRAZOLE 40 MG TABLET PO SCH (09:05)
[2016-11-25] MEDS: FOLIC ACID 1 MG TABLET PO SCH (09:05)
[2016-11-25] MEDS: METOPROLOL SUCCINATE 50 MG TAB.XL.24H PO SCH (09:06)
[2016-11-25] MEDS: THIAMINE 100 MG TABLET PO SCH (09:09)
--- NOTE | 2016-11-25 11:56 | Discharge Summary ---
Medical - DS: Prov Patient information: Note initiated : 11/25/16 at 11:50 am Service Date, if different from initiated Date: [] Patient: Carl Perez 66 y/o M admitted on 11/22/16 for withdrawals. Chief Complaint: [] Date of admission: 11/22/16 17:43 Discharge date: 11/25/16 Primary care physician: [dr. Sam Jasmine, [id number]] Admitting clinician: Neha Taylor Attending physician on discharge: Neha Taylor Medical - DS: Meds - Discharge Medications Prescriptions: Hydrochlorothiazide [Oretic] 25 mg PO DAILY #30 tablet LORazepam [Ativan] 1 mg PO Q6HP PRN #40 tablet PRN Reason: Agitation amLODIPine [Norvasc] 2.5 mg PO Q6H PRN #30 tablet PRN Reason: Blood Pressure - High Active and Home Medications: Home Medications Losartan [Cozaar] 150 mg PO QDAY PRN 11/22/16 [History Confirmed 11/22/16 Last Taken 11/13/16 09:00] Omeprazole [Prilosec] 20 mg PO HS 11/22/16 [History Confirmed 11/22/16 Last Taken 11/19/16] Active Medications Acetaminophen (Tylenol) 650 mg PO Q6HP PRN PRN Reason: PAIN/FEVER > 101 Last Admin: 11/25/16 08:55 Dose: 650 mg Chlorhexidine Gluconate (Peridex) 30 ml SSP DAILY [facility] Last Admin: 11/25/16 08:35 Dose: 30 ml Clonidine HCl (Catapres) 0.1 mg PO Q4HP PRN PRN Reason: Alcohol Withdrawal Last Admin: 11/23/16 10:17 Dose: 0.1 mg Docusate Sodium (Colace) 100 mg PO BID PRN PRN Reason: Constipation Last Admin: 11/25/16 08:55 Dose: 100 mg Ezetimibe (Zetia) 10 mg PO HS [facility] Last Admin: 11/24/16 21:14 Dose: 10 mg Folic Acid (Folic Acid) 1 mg PO DAILY [facility] Last Admin: 11/25/16 09:05 Dose: 1 mg Hydrochlorothiazide (Oretic) 25 mg PO DAILY [facility] Last Admin: 11/25/16 09:06 Dose: 25 mg Iron Carb/Multivit/Barren/Folic Acid (Multivitamin W/Minerals) 1 tab PO DAILY [facility] Last Admin: 11/25/16 08:55 Dose: 1 tab Lorazepam (Ativan) 0 mg IV Q4HP PRN; Protocol PRN Reason: Alcohol Withdrawal Last Admin: 11/25/16 05:55 Dose: 1 mg Lorazepam (Ativan) 1 mg PO ONCE ONE Stop: 11/25/16 12:01 Losartan Potassium (Cozaar) 100 mg PO QDAY [facility] Last Admin: 11/25/16 08:54 Dose: 100 mg Metoprolol Succinate (Toprol Xl) 50 mg PO BID [facility] Last Admin: 11/25/16 09:06 Dose: 50 mg Ondansetron HCl (Zofran) 4 mg IV Q4HP PRN PRN Reason: Nausea And Vomiting Last Admin: 11/22/16 22:55 Dose: 4 mg Pantoprazole Sodium (Protonix) 40 mg PO QAMAC [facility] Last Admin: 11/25/16 09:05 Dose: 40 mg Simvastatin (Zocor) 40 mg PO HS [facility] Last Admin: 11/24/16 21:14 Dose: 40 mg Sodium Chloride (Saline Flush) 10 ml IV Q8 [facility] Last Admin: 11/25/16 05:56 Dose: 10 ml Sodium Chloride (Saline Flush) 10 ml IV Q8 [facility] Last Admin: 11/25/16 06:00 Dose: 10 ml Thiamine HCl (Vitamin B1) 100 mg PO QDAY [facility] Last Admin: 11/25/16 09:09 Dose: 100 mg Medical - DS: Hosp Hospital course: Mr. Perez is a 66 year old male November 22, 2016:History of present illness: Mr. Perez is a 66 year old male with a history of chronic alcohol abuse, with many long-term complications including gastritis and esophageal varices with GI bleeding. he says he did quit drinking completely for about one year about 3 years ago, but then gradually resumed it. 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 In September and October several friends , and he has been helping with there is states, and has been a bit overwhelmed. He says he is now drinking up to 3 or 4 bottles of wine per day. Says he has lost his appetite. He is having increased balance and dizziness problems. He decided to quitcold turkey again 2 days ago, and did get a prescription to useperiodically. However today, he says he just suddenly felt extremely frightened and he freaked out and felt like he was falling down, and started screaming. He thinks he has been hallucinating voices. He has been feeling chilled and also has a headache, and says hisears seem to be hearing sounds differently. He has had some vomiting, mainly after coughing and gagging. He's also had some nausea. He's had some mild epigastric discomfort as well. He does note that his stools have been black, but says he has been taking Pepto-Bismol. He presented here this evening, saying he just couldn't handle all of the symptoms he was having at home, and is therefore admitted for monitored alcohol withdrawal symptoms. Otherwise, he denies fever, new vision changes sore throat or cough, chest pain or palpitations, shortness of breath or wheezing. He denies hematemesis or rectal bleeding, or dysuria. November 23, 2016: the patient has had widely varying CIWA scores overnight. He continues to have intermittent agitation, confusion, hallucinations but at other times is calm and cooperative and fairly alert. He does not seem to recognize me when I first entered the room today, and then asked me if he met me several days ago. he did manage to climb out of bed at least once last night. otherwise, he says he has some mild low back pain, which is chronic. He denies fever or chills, chest pain or palpitations, shortness of breath or cough, abdominal pain, nausea or vomiting, dysuria. November 24, 2016: Today, the patient seems to be having less hallucinations, but he still has episodes of being very anxious and tremulous. The nurses say he is asking for the lorazepam every 2-4 hours, whether or not he needs criteria. He seems a bit frightened about the prospect of going home anytime soon. He still seems to be a little on the fence about going to inpatient rehabilitation for his alcoholism. he admits that he feels quite depressed andhe needs to seek treatment for that. he otherwise denies fever or chills, chest pain or palpitations, shortness of breath, nausea vomiting or abdominal pain, dysuria, current hallucinations. November 25, 2016: -the patient continued to spike high blood pressures during the night, and did receive a when necessary dose of amlodipine, in addition to his usual metoprolol ,losartan. This morning he is awake and alert, he still tends to be fairly anxious. His nurses say he still is asking for Ativan wore off and then his CIWA score would indicate that he needs it. Reviewing his clinical course over the last couple of months, I suspect he is now dependent on benzodiazepines as well. -he seems to be through his alcohol withdrawal process, and is encouraged not to go back to drinking once he gets home. He and his were agreeable to signing up for some sort of outpatient rehabilitation program, but refused inpatient rehabilitation.- -He otherwise denies fever or chills, chest pain or shortness of breath, abdominal pain, nausea or vomiting or diarrhea, or dysuria. assessment and plan: #1. Acute alcohol withdrawal. The patient has apparently been trying to wean himself from alcohol at home, but has overused the lorazepam in the past. he is now through the worst of his alcohol withdrawal, and is much less tremulous. He appears clinically stable for discharge. His hallucinations have resolved. unfortunately he continues to spike fairly high blood pressures He reports that blood pressure was pretty well controlled at home, but that was in the setting of continuous use of both alcohol and lorazepam. -Social work has helped his connect with an outpatient rehabilitation program, and they're looking into that. t is unfortunate that he still makes wine as a hobby, because he is frequently tempted to drink it. Also, his wifedrinks on a regular basis. #1.5. Uncontrolled hypertension. initially it was thought that his elevated blood pressures were due to his alcohol withdrawal,but his withdrawal seems fairly completed, and he is still quite hypertensive. It is uncertain how much of this is due to anxiety and benzodiazepine withdrawal, versus underlying essential hypertension. -He will be discharged on losartan 100 mg a dayplus his usual metoprolol dose of 100 mg a day. -I have also addedHCTZ 25 mg daily. -We were unable to use clonidine as much as we wanted to, due to persistent bradycardia. -He is strongly encouraged to check his blood pressure several times a day and keep a diary, and take that to his next primary care physician appointment. -I can also give him a few extra doses of amlodipine to take if his blood pressure continues to run high at home, as he will not be able to get in to see his primary care physician for about 10 days after discharge. #2. CODE STATUS:Full code. The patient believes he has a living will and that his has his POA. #3. DVT prophylaxis: we used SCDs, given that he takes aspirin at home, and has previous history of GI bleeding and esophageal varices. #4. History of coronary disease. Continue usual cardiac meds. -he continues to have bradycardia, with heart rates in the 40s and 50s #5. Psychiatric. - history of both bipolar disorder and anxiety. I discussed with him that he's clearly showing some signs of depression, and should consider undergoing treatment with either medications or counseling for at least a few months. #6. GI. -continue proton pump inhibitor. #7. Elevated lipase. He has no significant abdominal pain, so I doubt significant pancreatitis. #8. Hypokalemia. Replaced IV. #9. Likely benzodiazepine dependence. He has only used 2 mg of Ativan in the last 12 hours, so we think he should be able to get along with 1 mg of Ativan every 6-8 hours over the next week. I explained to him again that really this needs to be weaned over time. He is to follow-up with his primary care physician to review this issue as this may take longer to wean him off of, and it is not clear how motivated he is to come off the Ativan. - Time Spent with Patient Total time spent providing and/or coordinating discharge services: Greater than 30 minutes (pent today reviewing test results, interviewing and examining him, going back to his room again to answer more questions, and writing orders.) Medical - DS: Exam - Constitutional Vitals: Vital Signs Temp Pulse Resp BP Pulse Ox 11/25/16 10:00 72 17 132/79 98 11/25/16 09:00 72 18 168/100 98 11/25/16 08:00 97.9 F 67 16 170/110 98 11/25/16 07:00 53 L 16 182/84 96 11/25/16 06:00 15 169/103 95 11/25/16 05:00 13 182/85 100 11/25/16 04:00 98.7 F 17 183/87 96 11/25/16 03:00 14 178/81 96 11/25/16 02:00 14 170/83 96 11/25/16 01:00 14 178/82 97 11/25/16 00:30 61 96 11/25/16 00:00 99.1 F 15 164/92 96 11/24/16 23:00 13 171/84 95 11/24/16 22:00 12 164/83 96 11/24/16 21:00 10 L 179/82 97 11/24/16 20:00 98.3 F 12 158/82 97 11/24/16 19:38 46 L 96 11/24/16 19:00 13 149/62 96 11/24/16 18:00 50 L 16 168/74 95 11/24/16 16:59 48 L 16 163/76 97 11/24/16 16:57 97 11/24/16 16:23 97 11/24/16 16:00 45 L 18 161/81 97 11/24/16 15:00 98.1 F 46 L 18 141/77 95 11/24/16 14:00 57 L 18 154/81 96 11/24/16 13:00 49 L 18 165/86 90 11/24/16 12:00 98.0 F 54 L 19 156/75 95 Intake and Output 11/24/16 11/25/16 11/25/16 21:59 05:59 13:59 Intake Total 780 / 780 400 / 400 Output Total 750 / 750 650 / 650 Balance 30 / 30 -250 / -250 Intake: Oral 780 / 780 400 / 400 Output: Void Amount 750 / 750 650 / 650 Other: Meal snack snack Percent of Meal Consumed 100% 50% Feeding Ability Assist with Tray Set Up Assist with Tray Set Up Weight 182 lb 6.4 oz Additional comments: on exam,he is sitting up in a chair. He is awake and alert. He has been up walking in the halls today with physical therapy, and seems to be safe on his feet. Head: Is normal without atraumatic. Neck supple without obvious lymphadenopathy or JVD. Cardiac exam shows regular rate and rhythm. Lungs are clear to auscultation. Abdomen is soft and nontender. Extremities show no edema. Neurologic: The patient is awake and alert, but seems to get anxious when discussing how many lorazepam he is allowed to have. He admits that he was taking more than he should at home. He seems much less tremulous today. Medical - DS: Data Procedures and tests throughout hospitalization: CBC from November 23 shows white blood cell count of 3.4 thousand hemoglobin 10.8 , hematocrit 33.3, RDW of 23 Chemistry panel from yesterday showssodium 140, potassium 3.8, chloride 105, CO2 24, B1 13, creatinine 0.8Phosphorus was elevated at 4.8 magnesium normal at 2.0 Liver function tests:GGT has come down from 503-456 AST has dropped from 60-239 ALT is normal at 21 Alkaline phosphatase is normal at 23;Total protein is normal. lipase on admission was 273 Vitamin B12 was normal at 458 Alcohol level on admission was less than 0.01 Medical - DS: A/P - Patient/Caregiver Discharge Instructions Activity: increase activity as tolerated Diet: Cardiac - Problem Maintenance (1) Alcohol withdrawal delirium Status: Resolved (2) Anxiety Status: Chronic (3) Alcohol dependence, continuous Status: Chronic Comment: 12/09/2014 - Dr. Abarca (4) Bipolar disorder Status: Chronic Comment: 12/09/2014 - Dr. Abarca (5) CAD (coronary artery disease) Status: Chronic Comment: 12/09/2014 - Dr. Abarca - Follow up Plan Follow up with: Sam Jasmine MD [Primary Care Provider] - 12/02/16 11:15 am (Continue with your previously scheduled appointment December 06 @ 6:15pm. ) Disposition: Home, Self-Care Prognosis: Good Rehab Potential: Good Overall status at discharge: patient is not back to baseline Medical - DS: Qual - VTE Deep Vein Thrombosis/Pulmonary Embolism Present on Admission: No
[2016-11-25] MEDS ORDERED: LORazepam 1 MG TABLET PO ONE (12:00)
== END 2016-11-25 14:00 | disposition home or self-care (01) | DRG 897 ==
LOC: ED 13:41 → ICU 13:41 → OBSVTOIN 17:43 → ICU 17:45
PROVIDERS: ADMIT Internal Medicine; ATTEND Internal Medicine